=== PATIENT | female | born 1940 | race Caucasian/White ===

== ENCOUNTER 2023-07-01 11:35 | Emergency (ER) | payer MEDICARE, OTHER, SELFPAY ==
[2023-07-01] VITALS (7 sets, daily range): BP systolic 128–163; BP diastolic 46–84
[2023-07-01 12:32] LABS: % Basophils 0.3 % (0-2); % Eosinophils 2.7 % (0-6); % Immature Granulocytes 0.1 % (0-0.5); % Lymphocytes 30.8 % (20.5-51.1); % Monocytes 8.8 % (1.7-9.3); % Neutrophils 57.3 % (42.2-75.2); Absolute Eosinophils 0.2 10^3/uL (0-0.7); Absolute Lymphocytes 2.1 10^3/uL (1.2-3.4); Absolute Monocytes 0.6 10^3/uL (0.1-0.6); Absolute Neutrophils 3.9 10^3/uL (1.4-6.5); Hematocrit 36.9 % (37.0-47.0); Hemoglobin 11.7 g/dL (12.0-16.0); Mean Corp Hgb Conc. 31.7 g/dL (33.0-37.0); Mean Corpuscular Hgb 30.3 pg (27.0-31.0); Mean Corpuscular Volume 95.6 fL (81.0-99.0); Mean Platelet Volume 10.4 fL (7.4-10.4); Nucleated Red Blood Cells % 0 %; Platelet Count 207 10^3/uL (130-400); Red Blood Cell Count 3.86 10^6/uL (4.20-5.40); Red Cell Dist. Width 15.1 % (11.5-14.5); White Blood Cell Count 6.7 10^3/uL (4.8-10.8)
[2023-07-01 12:45] LABS: ALT (SGPT) 13 U/L (0-35); AST (SGOT) 23 U/L (14-36); Albumin 3.3 g/dl (3.5-5.0); Alkaline Phosphatase 54 U/L (38-126); Blood Urea Nitrogen 28 mg/dl (7-17); Calcium 8.7 mg/dl (8.4-10.2); Carbon Dioxide 32 mmol/L (22-30); Chloride 105 mmol/L (98-107); Glucose 93 mg/dl (70-99); Potassium 4.5 mmol/L (3.5-5.1); Sodium 139 mmol/L (135-145); Total Bilirubin 0.4 mg/dl (0.2-1.3); eGFR 55.21
[2023-07-01 12:53] LABS: Troponin I < 0.012 ng/ml
--- NOTE | 2023-07-01 13:02 | ED.GENMED ---
History of Present Illness
General
Chief Complaint: Chest Problem
Source: patient, records and fdc
Exam Limitations: dementia
Time Seen by Provider: 07/01/23 12:18
Nursing documentation reviewed up to this point in time: agreed with
Travel History
Have you had any contact with someone who has COVID-19?: Unable to Answer
Do you have any symptoms of coronavirus? Fever > 100 degrees, chills, cough, shortness of breath, sore throat, loss of taste or smell, muscle aches, or headache?: Unable to Answer
History of Present Illness
History of Present Illness:
83-year-old female with past medical history of hypertension, hyperlipidemia, significant dementia who presents to the emergency room via EMS from [facility] for evaluation after apparently an episode of chest pain. Patient has
significant dementia and is unable to meaningfully participate in history that she can speak and have a conversation but is pleasantly confused cannot tell me where she is or why she is here. Right now in the emergency room she says that she has no
complaints. When specifically asked on review of systems she says that she has some very mild neck pain but she specifically denies headache, chest pain, abdominal pain, back pain here. EMS reported the patient was having 'burning chest discomfort
and shooting pains to the neck and back.' I spoke directly to the fdc staff at [facility]: They report that at change of shift between 7 and 8 AM today they checked on the patient and she told him that she was having chest pains.
Apparently they had a nurse practitioner evaluate her. She was apparently complaining of some generalized bodyaches associate with her chest pain and said that she was feeling scared. EMS was called to bring her to the hospital. They say that she
has not complained of chest pains in the past and has otherwise been in her normal state of health. It sounds if she is at her baseline mental status which is oriented x 1 per their report.
Review of Systems
Review of Systems
Unable to obtain full review of systems at this time due to: dementia
All Other Systems: Not applicable
Phy Exam
Physical Exam
Physical Exam:
General: Awake, alert, oriented x1, pleasantly confused--she does follow commands and can have basic conversation but is disoriented; no acute distress
Head: Normocephalic, atraumatic
Eyes: Conjunctiva normal, pupils equal round and reactive to light bilateral
Throat: Airway intact, handling secretions
Neck: Trachea midline, no tenderness to the cervical spine and full range of motion
Lungs: Clear to auscultation bilaterally, no wheezing, rales, rhonchi
Heart: Regular rate and rhythm, no murmurs, gallops, or rubs
Abd: Soft, non distended, nontender
Neuro: Cranial nerves grossly intact, speech fluid
Skin: no rash
Extremities: No edema in extremities, equal pulses in all extremities
Scores
Heart Failure Risk
Heart Failure Risk Score: Not Applicable
Heart Score for Chest Pain Patients
STEMI patient?: No
History: Slightly or Non-Suspicious
ECG: Normal
Age: >/= 65 years
Risk Factors: >/= 3 Risk Factors or History of CAD
Troponin: </= Normal Limit
Heart Score for Chest Pain Patients: 4
Heart Score Risk: 20.3% MACE over next 6 weeks
PE Wells Score
Symptoms of DVT: No
No alternative diagnosis better explains the illness: No
Tachycardia with pulse > 100: No
Immobilization (>=3 days) or surgery within previous 4 weeks: No
Prior history of DVT or pulmonary embolism: No
Presence of hemoptysis: No
Presence of malignancy: No
Pulmonary Embolism Risk Score: 0
Probability of PE: Pt is low risk
Withdrawal Assessment of Alcohol
Withdrawal Assessment Completed?: Not applicable
Course
Orders/Labs/Results
Orders:
Orders
07/01/23 11:44
Electrocardiogram (*1) Urgent
Reason for Study: CAD
07/01/23 11:45
EKG- Treatment ONCE
07/01/23 12:00
Complete Blood Count/With Diff Urgent
Comprehensive Metabolic Panel Urgent
Troponin I Urgent
07/01/23 12:21
CR Chest - 2 Views Urgent
Comment:
Reason For Exam: cp
07/01/23 12:47
CR Cervical Spine 2 or 3 Vw Urgent
Comment:
Reason For Exam: neck pain
07/01/23 13:01
D-Dimer Urgent
07/01/23 14:14
CT Chest Pe Study Urgent
Comment:
Reason For Exam: chest pain, +dimer
07/01/23 16:47
Troponin I Urgent
07/01/23 17:12
Haloperidol Lactate [Haldol] 5 mg .ROUTE .STK-MED ONE
07/01/23 17:15
Haloperidol Lactate [Haldol] 1 mg IV NOW STA
Abnormal Lab Results
07/01/23 07/01/23
12:00 13:01
RBC 3.86 L 10^6/uL
(4.20-5.40)
Hgb 11.7 L g/dL
(12.0-16.0)
Hct 36.9 L %
(37.0-47.0)
MCHC 31.7 L g/dL
(33.0-37.0)
RDW 15.1 H %
(11.5-14.5)
D-Dimer 1.79 H ug/mlFEU
(0.00-0.50)
Carbon Dioxide 32 H mmol/L
(22-30)
BUN 28 H mg/dl
(7-17)
Total Protein 6.0 L g/dl
(6.3-8.2)
Albumin 3.3 L g/dl
(3.5-5.0)
07/01/23 12:00
07/01/23 12:00
Vital Signs
Initial and Last Documented VS:
Initial Vital Signs
Temp Pulse Resp BP Pulse Ox
37.2 C 80 20 156/56 98
07/01/23 11:58 07/01/23 11:58 07/01/23 11:58 07/01/23 11:58 07/01/23 11:58
Last Documented Vital Signs
Temp Pulse Resp BP Pulse Ox
37.2 C 83 23 128/46 97
07/01/23 11:58 07/01/23 15:00 07/01/23 15:00 07/01/23 14:00 07/01/23 14:00
MDM/Problems Addressed
Differential Diagnosis Includes:
Chest pain: GERD, costochondritis, anxiety, angina; emergent pathology such as ACS, pulmonary embolism, aortic dissection, pneumothorax seem much less likely given that she is denying any symptoms at present and has a reassuring physical exam
MDM/Problems Addressed:
83-year-old female presents from [facility]dc after apparently having an episode of chest pain this morning associated with some generalized bodyaches. Her symptoms seem to have resolved�she is poor historian due to her dementia cannot recall
complaining of chest pain and denies any here. Her only complaint here on review of systems was neck pain but when initially asked she said she feels fine. She is hypertensive on arrival but has otherwise normal vitals. EKG shows no STEMI. Plan
to place an IV check labs including a CBC and a CMP; will check serial troponins. D-dimer. Check a chest x-ray. Given that her only complaint on review of systems here was neck pain will check an x-ray of the cervical spine although she really
points to the left paraspinal region and I suspect this is likely either arthritic or muscular strain. Will monitor closely reassess after the above.
Labs reviewed: CBC shows marginal anemia otherwise unremarkable. CMP within acceptable range. Her troponin is undetectable�will check repeat. Her D-dimer was slightly positive�will send for CT to rule out PE. Cervical spine x-ray shows
degenerative changes, chest x-ray no acute disease. Patient remains resting comfortably denies chest pain says she feels fine.
CTA negative for PE, dissection or any other acute pathology. Patient remains resting comfortably with normal vital signs and no complaints. Continue to monitor here but if repeat troponin negative likely plan for discharge back to fdc.
Discussed with fdc staff.
While awaiting repeat troponin patient becoming agitated, sundowning. Attempted redirection multiple times but patient tried to leave the room persistently and so she was given some Haldol which calmed her. Will continue to monitor pending repeat
troponin and plan for discharge back to her normal environment if negative.
Chronic conditions affecting care:
Dementia�impacts essentially every aspect of her care
Hypertension, hyperlipidemia�higher risk for CAD
Acute Exacerbation and/or Progression of Chronic Illness:
Acutely hypertensive
Acute Exacerbation and/or Progression of Chronic Illness: HTN
*Radiology
Radiology exam reviewed: preliminary read by ED provider and radiology read reviewed
*Pulse Oximetry
Patient hypoxic: no
*EKG
Interpreted by ED Provider?: Yes
Heart Rate: 72
Rate: normal
Rhythm: sinus
[place]: normal axis
Interval: normal interval
QRS Pattern: normal QRS
Ischemia: other (Anterior lateral T wave inversions-no comparison available)
*Critical Care Note
Total Time (30-74mins, 75-104mins- exclusive of procedures): Not Applicable
Data Reviewed
Source: patient, ambulance crew, fdc and fdc records
Patient Management
Discussion with other providers: [facility] staff (Discussed directly with fdc staff)
ED Attending Note
-
Portions of this chart may have been created with voice recognition software.� Occasional wrong word or��sound alike� substitutions may have occurred due to the inherent limitations of voice recognition software.
Discharge Plan
Departure
Patient with high blood pressure during this ER visit?: Yes
Discharge Problem:
Chest pain, Degenerative disc disease, cervical
Instructions: Chest Pain PCP Follow Up
Referrals:
Sara Tafoya, [Family Provider] - Call in 1-3 days for appt
Activity Restrictions/Additional Instructions:
Thank you for visiting the Emergency Department at [facility].
1. Please schedule a follow up appointment as directed. Call first thing tomorrow morning to make an appointment.
2. If indicated, please take your medications as instructed and indicated on discharge paperwork.
3. If any of your symptoms do not improve, or persist, or become more severe within 6-12 hours, please return to the emergency department for further care.
4. Please return to the emergency department if you develop a headache, neck pain/stiffness, fever greater than 100.4F, chest pain, shortness of breath, persistent nausea, vomiting, slurred speech, difficulty walking, numbness/tingling, weakness,
signs of infection or any other symptoms that are worrisome to you.
Please call [phone] if you have any questions.
Interventions
Interventions:
*Risk Screen - Suicide Last Done: 07/01/23 11:41
*General Assessment Last Done: 07/01/23 11:41
*Neglect/Abuse Screening Last Done: 07/01/23 11:41
ED- Fall Risk Assessment Last Done: 07/01/23 11:43
*ED COVID-19 Vaccine History Last Done: 07/01/23 12:16
ED- Cardiac Assessment Last Done: 07/01/23 13:36
ED- Pulmonary Assessment Last Done: 07/01/23 13:36
[2023-07-01 13:56] LABS: D-Dimer 1.79 ug/mlFEU (0.00-0.50)
[2023-07-01] MEDS: HALDOL 1 MG IV (17:15)
[2023-07-01 17:32] LABS: Troponin I < 0.012 ng/ml
== END 2023-07-01 18:00 | disposition home or self-care (01) ==
LOC: EMR 11:35
PROVIDERS: EMERGENCY PHYSICIAN Emergency Medicine; FAMILY PHYSICIAN Hospitalist
DX: R07.9 Chest pain, unspecified (principal); M50.30 Other cervical disc degeneration, unspecified cervical region; D64.9 Anemia, unspecified; F03.94 Unspecified dementia, unspecified severity, with anxiety
CPT/HCPCS: 99285; 96374; 71046; 71275; 72040; 80053; 84484; 85025; 85379; 93005; Q9967